=== PATIENT | male | born 1965 | race African-American/Black ===

== ENCOUNTER 2022-12-01 16:25 | Emergency (ER) | payer OTHER ==
[2022-12-01] MEDS ORDERED: Ketorolac Tromethamine 60 MG/2 ML VIAL ONE (17:01)
== END 2022-12-01 17:44 | disposition home or self-care (01) ==
LOC: NAV ERS 16:25
DX: S43.422A Sprain of left rotator cuff capsule, initial encounter (principal); E11.9 Type 2 diabetes mellitus without complications; I10 Essential (primary) hypertension; E03.9 Hypothyroidism, unspecified; E78.5 Hyperlipidemia, unspecified; Z79.899 Other long term (current) drug therapy; X50.0XXA Overexertion from strenuous movement or load, initial encounter
CPT/HCPCS: 96372; J1885